=== PATIENT | male | born 1950 | race Hispanic/Latino ===

== ENCOUNTER 2020-10-26 16:59 | Emergency (ER) | payer MEDICARE ==
[2020-10-26 19:33] LABS: Bilirubin Neg (Negative); Blood, Urine Negative (Negative); Clarity Clear (Clear); Glucose, Urine (Dipstick) Normal (Negative); Ketone, Urine Negative (Negative); Leukocyte 25 (Negative); Nitrite Negative (Negative); Protein, Urine (Dipstick) 30 mg/dl (Neg-Trace); Specific Gravity, Urine 1.015 (1.002-1.036); Urobilinogen Normal mg/dL (Less than 2)
[2020-10-26 19:40] LABS: RBC/HPF None Seen HPF (0-3); Squamous Epithelial 0-3 HPF (0-3); WBC/HPF 0-3 HPF (0-3)
[2020-10-26 19:41] LABS: Bacteria/HPF None Seen HPF (None Seen)
== END 2020-10-26 20:58 | disposition home or self-care (01) ==
LOC: CSHERS 16:59
DX: N30.00 Acute cystitis without hematuria (principal); R33.9 Retention of urine, unspecified
CPT/HCPCS: 51702; 81003; 81015; 87086